=== PATIENT | male | born 1980 | race Caucasian/White ===

== ENCOUNTER 2017-09-12 14:48 | Emergency (ER) | payer OTHER, BC ==
[~2017-09-12] VITALS: Ht 180.3 cm; Wt 98.0 kg
[2017-09-12] MEDS ORDERED: IOHEXOL 350 MG/ML 10 ML VIAL (for RAD DIAG) IVCONTRAST ONE (14:49)
[2017-09-12 15:34] VITALS: BP 168/103; PULSE 87; RESP 20; TEMP 98.1; O2SAT 98
[2017-09-12] MEDS ORDERED: MORPHINE SULFATE 4 MG/ML INJ IV PUSH ONE (15:45)
[2017-09-12 16:47] LABS: ALT (GPT) 55 U/L (12-78)
[2017-09-12 16:48] LABS: ALKALINE PHOSPHATASE 99 U/L (45-117); TOTAL BILIRUBIN ADULT 0.5 MG/DL (0.2-1.0)
[2017-09-12 16:49] LABS: ANION GAP 8 MEQ/L (5-15); AST (GOT) 31 U/L (15-37); BICARBONATE 25.1 MEQ/L (21.0-32.0); BLOOD UREA NITROGEN 19 MG/DL (7-18); CHLORIDE 104 MEQ/L (98-107); GLOMERULAR FILTRATION RATE 69 ML/MIN (>89); POTASSIUM 3.6 MEQ/L (3.5-5.1); SODIUM (NA) 137 MEQ/L (136-145)
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
[2017-09-12 18:03] LABS: AUTOMATED NEUTROPHIL # 12.7 TH/MM3 (1.8-7.7); BASOPHIL # 0.1 TH/MM3 (0-0.2); BASOPHIL % 0.4 % (0.0-2.0); EOSINOPHIL % 0.2 % (0.0-4.0); HEMATOCRIT 43.8 % (39.0-51.0); HEMO FLAGS DIFF FINAL; LYMPHOCYTE # 1.3 TH/MM3 (1.0-4.8); MEAN CELL VOLUME 81.6 FL (80.0-100.0); MEAN CORPUSCULAR HEMOGLOBIN 28.6 PG (27.0-34.0); MONO % 4.3 % (0.0-8.0); NEUT % 86.1 % (16.0-70.0); PLATELET COUNT 225 TH/MM3 (150-450); RED BLOOD COUNT 5.37 MIL/MM3 (4.50-5.90); RED CELL DISTRIBUTION WIDTH 13.5 % (11.6-17.2); WHITE BLOOD COUNT 14.7 TH/MM3 (4.0-11.0)
[2017-09-12] MEDS ORDERED: KETOROLAC TROMETHAMINE 30 MG/ML (IVP) VIAL IV PUSH ONE (18:15)
[2017-09-12 18:16] LABS: INTERNATIONAL NORMALIZED RATIO 0.9 RATIO; PROTHROMBIN TIME - PATIENT 10.4 SEC (9.8-11.6)
[2017-09-12 18:18] LABS: APTT (PATIENT) 27.6 SEC (24.3-30.1)
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
[2017-09-12] MEDS ORDERED: CYCL10TA PO (19:25)
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
== END 2017-09-12 20:12 | disposition home or self-care (01) ==
LOC: NEDAMB 14:48 → EDSEX 14:48 → NEPD 20:12
DX: S20.212A Contusion of left front wall of thorax, initial encounter (principal); S20.312A Abrasion of left front wall of thorax, initial encounter; V47.5XXA Car driver injured in collision with fixed or stationary object in traffic accident, initial encounter; Y92.411 Interstate highway as the place of occurrence of the external cause
CPT/HCPCS: 71260; 72125; 74177; 80053; 85025; 85610; 85730; 86850; 86900; 86901; 96374; 96375; 99285; J1885; J2270; Q9967